=== PATIENT | male | born 1995 | race American Indian/Alaskan Native ===

== ENCOUNTER 2016-11-01 09:03 | Emergency (ER) | payer OTHER ==
[2016-11-01] MEDS ORDERED: NACL 0.9% 1000 ML 1,000 ML IV ONE (12:58)
[2016-11-01] MEDS ORDERED: MORPHINE IV ONE (12:58)
--- NOTE | 2016-11-01 12:59 | Emergency Department Report ---
<IONA CHURCHILL - Last Filed: 11/01/16 14:32> - General Chief Complaint: Puncture Wound Stated Complaint: RT LEG WOUND Time Seen by Provider: 11/01/16 12:13 - Related Data Previous Rx's Medication Instructions Recorded Last Taken Type Acetaminophen/Codeine [Tylenol #3] 1 tab PO Q6H PRN #6 tab 11/01/16 Unknown Rx Cephalexin [Keflex] 500 mg PO BID #14 capsule 11/01/16 Unknown Rx Ibuprofen [Motrin] 600 mg PO Q8H PRN #25 tablet 11/01/16 Unknown Rx Neomycn/Baci Zn/Pmyx Bs/Pramox 28 gm TP BID #1 oint...g. 11/01/16 Unknown Rx [Triple Antibioti-Pain Rlf Oint] Sulfamethoxazole/Trimethoprim 1 each PO BID #14 tablet 11/01/16 Unknown Rx [Bactrim DS TAB] Allergies Allergy/AdvReac Type Severity Reaction Status Date / Time No Known Allergies Allergy Unverified 11/01/16 09:15 ED Review of Systems ROS: Stated complaint: RT LEG WOUND Other details as noted in HPI ED Past Medical Hx - Medications Home Medications: Home Medications Medication Instructions Recorded Confirmed Last Taken Type Acetaminophen/Codeine [Tylenol #3] 1 tab PO Q6H PRN #6 tab 11/01/16 Unknown Rx Cephalexin [Keflex] 500 mg PO BID #14 capsule 11/01/16 Unknown Rx Ibuprofen [Motrin] 600 mg PO Q8H PRN #25 tablet 11/01/16 Unknown Rx Neomycn/Baci Zn/Pmyx Bs/Pramox 28 gm TP BID #1 oint...g. 11/01/16 Unknown Rx [Triple Antibioti-Pain Rlf Oint] Sulfamethoxazole/Trimethoprim 1 each PO BID #14 tablet 11/01/16 Unknown Rx [Bactrim DS TAB] ED Course Vital Signs 11/01/16 11/01/16 09:15 13:08 Temperature 98.4 F Pulse Rate 88 Respiratory 18 16 Rate Blood Pressure 117/80 O2 Sat by Pulse 100 Oximetry ED Medical Decision Making - Lab Data Result diagrams: 11/01/16 13:15 11/01/16 13:15 Critical care attestation.: If time is entered above; I have spent that time in minutes in the direct care of this critically ill patient, excluding procedure time. ED Disposition Clinical Impression: Puncture wound of right thigh Qualifiers: Encounter type: initial encounter Qualified Code(s): S71.131A - Puncture wound without foreign body, right thigh, initial encounter Disposition: DISCHARGED TO HOME OR SELFCARE Condition: Stable Instructions: Puncture Wound (ED), Suture Care (ED), Laceration (ED) Prescriptions: Acetaminophen/Codeine [Tylenol #3] 1 tab PO Q6H PRN #6 tab PRN Reason: Pain Cephalexin [Keflex] 500 mg PO BID #14 capsule Ibuprofen [Motrin] 600 mg PO Q8H PRN #25 tablet PRN Reason: Pain Neomycn/Baci Zn/Pmyx Bs/Pramox [Triple Antibioti-Pain Rlf Oint] 28 gm TP BID #1 oint...g. Sulfamethoxazole/Trimethoprim [Bactrim DS TAB] 1 each PO BID #14 tablet Referrals: PRIMARY CARE, [Primary Care Provider] - 3-5 Days Forms: Accompanied Note, Work/School Release Form(ED) <RUBENS FARRIS - Last Filed: 11/01/16 16:38> - General Source: patient Mode of arrival: Ambulatory Limitations: No Limitations - History of Present Illness Initial Comments: 21-year-old male past medical history none presents with complaint of puncture wound to right thigh. Patient states that approximately 11 PM last night he was walking on his porch and a piece of metal on porch railing punctured his right thigh as he walked by. Patient complaining of severe pain in his right thigh. States that it bled heavily last night and bleeding has slowed down. Denies sustaining any other injuries. States that he received a tetanus updated 3 years ago. Sorry but limping due to pain and right thigh. Visible moderate swelling and anterior right upper thigh. Patient denies any fever or chills, denies any paresthesias in lower extremity. Accompanied by his -: During the night Location: other (right thigh) Extremity Location: Right: Thigh (1 inch puncture wound with surrounding swelling right mid thigh anteriorly.) 1 - punture wound with surrounding Patient Tetanus UTD: Yes (3 years ago pt states he had tdap for another laceration) Context: accidental Associated Symptoms: none ED Review of Systems Constitutional: denies: chills, fever Eyes: denies: eye pain, eye discharge, vision change ENT: denies: ear pain, throat pain Respiratory: denies: cough, shortness of breath, wheezing Cardiovascular: denies: chest pain, palpitations Endocrine: no symptoms reported Gastrointestinal: denies: abdominal pain, nausea, diarrhea Genitourinary: denies: urgency, dysuria Musculoskeletal: denies: back pain, joint swelling, arthralgia Skin: denies: rash, lesions Neurological: denies: headache, weakness, paresthesias Psychiatric: denies: anxiety, depression Hematological/Lymphatic: denies: easy bleeding, easy bruising ED Past Medical Hx - Past Medical History Previous Medical History?: Yes Hx Hypertension: Yes - Surgical History Past Surgical History?: No - Social History Smoking Status: Never Smoker Substance Use Type: None ED Physical Exam - General Limitations: No Limitations General appearance: alert, in no apparent distress - Head Head exam: Present: atraumatic, normocephalic - Eye Eye exam: Present: normal appearance, PERRL, EOMI - ENT ENT exam: Present: mucous membranes moist - Neck Neck exam: Present: normal inspection - Respiratory Respiratory exam: Present: normal lung sounds bilaterally. Absent: respiratory distress - Cardiovascular Cardiovascular Exam: Present: regular rate, normal rhythm. Absent: systolic murmur, diastolic murmur, rubs, gallop - GI/Abdominal GI/Abdominal exam: Present: soft, normal bowel sounds - Rectal Rectal exam: Present: deferred - Extremities Exam Extremities exam: Present: normal inspection - Expanded Lower Extremity Exam Right Hip exam: Present: normal inspection, full ROM Upper Leg exam: Present: tenderness, swelling, laceration (1 inch horizontal laceration across the right anterior mid thigh no visible hemorrhage no visible bleeding, approxiamtely 10 cm surroundign wound) Knee exam: Present: normal inspection, full ROM Lower Leg exam: Present: normal inspection, full ROM Ankle exam: Present: normal inspection, full ROM Foot/Toe exam: Present: normal inspection, full ROM Neuro vascular tendon exam: Present: no vascular compromise Gait: Positive: antalgic 1 - wound Is here - Back Exam Back exam: Present: normal inspection - Neurological Exam Neurological exam: Present: alert, oriented X3, CN II-XII intact, normal gait - Psychiatric Psychiatric exam: Present: normal affect, normal mood - Skin Skin exam: Present: warm, dry, intact, normal color. Absent: rash - Laceration /Wound Repair Right Upper Anterior Thigh Wound Location: lower extremity Wound Length (cm): 2 Wound's Depth, Shape: superficial Wound Explored: clean Irrigated w/ Saline (ccs): 100 Betadine Prep?: Yes Anesthesia: 1% Lidocaine, Lidocaine w/ Epi Volume Anesthetic (ccs): 6 Wound Debrided: minimal Wound Repaired With: sutures Suture Size/Type: 4:0, nylon Number of Sutures: 1 Layer Closure?: No Sterile Dressing Applied?: Yes (triple abx and band-aid) ED Medical Decision Making - Lab Data Result diagrams: 11/01/16 13:15 11/01/16 13:15 - Medical Decision Making A/P: deep puncture wound right thigh 1-CT scan shows no arterial injury no severe muscular injury no foreign body 2-tdap is up-to-date 3-Bactrim and Keflex twice a day 7 days 4-Motrin PRN 5- 1 loose superficial 5-0 nylon suture placed to give some approximation of wound, edges left open as this is a puncture wound. Patient to return to the ED in 10 days for suture removal or to return sooner for any redness erythema severe pain pus drainage or foul odor from site or for development of any fever or chills or heavy bleeding. 6- Case d/w Dr. Parham 7- Pt ambulatory with normal vitals upon DC ED Disposition Is pt being admited?: No Does the pt Need Aspirin: No Time of Disposition: 16:35
[2016-11-01 13:38] LABS: Basophils % (Auto) 0.3 % (0.0-1.8); Eosinophils % (Auto) 0.4 % (0.0-4.3); Hematocrit 45.9 % (35.5-45.6); Hemoglobin 15.5 gm/dl (11.8-15.2); Mean Corpuscular HGB Conc 34 % (32-34); Mean Corpuscular Hemoglobin 30 pg (28-32); Mean Corpuscular Volume 90 fl (84-94); Platelet Count 183 K/mm3 (140-440); Red Blood Count 5.08 M/mm3 (3.65-5.03); Red Cell Distribution Width 13.4 % (13.2-15.2); White Blood Count 10.7 K/mm3 (4.5-11.0)
[2016-11-01 13:49] LABS: Anion Gap 18 mmol/L; Blood Urea Nitrogen 18 mg/dL (9-20); Calcium 8.9 mg/dL (8.4-10.2); Carbon Dioxide 23 mmol/L (22-30); Chloride 102.2 mmol/L (98-107); Creatine Kinase 322 units/L (55-170); Glucose 87 mg/dL (75-100); Potassium 4.2 mmol/L (3.6-5.0); Sodium 139 mmol/L (137-145)
[2016-11-01] MEDS ORDERED: NACL ONE (13:49)
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
[2016-11-01] MEDS ORDERED: XYLOCAINE 2%/EPI 1:100,000 INFILTRATI ONE (15:31)
[2016-11-01] MEDS ORDERED: XYLOCAINE 1%/ EPI 1:100,000 INFILTRATI ONE (15:31)
[2016-11-01] MEDS ORDERED: TRIPLE ANTIBIOTIC TP ONE ×2 (15:32→15:35)
[2016-11-01] MEDS ORDERED: BACTRIM DS PO ONE (15:34)
[2016-11-01] MEDS ORDERED: KEFLEX PO ONE (15:35)
[2016-11-01] MEDS ORDERED: XYLOCAINE 1%/ EPI 1:100,000 INFILTRATI NR (16:00)
[2016-11-01 16:49] VITALS: BP 124/78
== END 2016-11-01 16:48 | disposition home or self-care (01) ==
LOC: ED 09:03
DX: S71.131A Puncture wound without foreign body, right thigh, initial encounter (principal); I10 Essential (primary) hypertension; W45.8XXA Other foreign body or object entering through skin, initial encounter; Y93.01 Activity, walking, marching and hiking; Y99.8 Other external cause status; Y92.488 Other paved roadways as the place of occurrence of the external cause
CPT/HCPCS: 12001; 36415; 73706; 80048; 82550; 85025; 96361; 96374; 99284; J2270; J7030; Q9967; A6250

== ENCOUNTER 2018-08-06 15:52 | Emergency (ER) | payer OTHER ==
--- NOTE | 2018-08-06 21:06 | Emergency Department Report ---
ED General Adult HPI - General Chief complaint: Medical Clearance Stated complaint: JAW PAIN/LUMP ON NECK Time Seen by Provider: 08/06/18 20:13 Source: patient Mode of arrival: Ambulatory Limitations: No Limitations - History of Present Illness Initial comments: 22-year-old male to emergency Department complaining of having pain to his left jaw AND which has been present for the last 2-3 days. He states previously about a year ago he had episode of pain to his right jaw when he was at [facility] which required him to get a biopsy of this cervical lymph nodes and resulted in him receiving a shot for perceived syphilis, although not confirmed.. Pain has reemerge. She states she has not been sexually active since that time, but states he would like to get another set syphilis shot although he has no lesions that visit that he can account to 10 report of his body. No numbness or tingling, no fatigue, no mouth soles, no ulc erations, no rectal pain, no weight loss. - Related Data Previous Rx's Medication Instructions Recorded Last Taken Type Acetaminophen/Codeine [Tylenol #3] 1 tab PO Q6H PRN #6 tab 11/01/16 Unknown Rx Cephalexin [Keflex] 500 mg PO BID #14 capsule 11/01/16 Unknown Rx Ibuprofen [Motrin] 600 mg PO Q8H PRN #25 tablet 11/01/16 Unknown Rx Neomycn/Bacitrc/Polymyx/Pramox 28 gm TP BID #1 oint...g. 11/01/16 Unknown Rx [Triple Antibioti-Pain Rlf Oint] Sulfamethoxazole/Trimethoprim 1 each PO BID #14 tablet 11/01/16 Unknown Rx [Bactrim DS TAB] Amoxicillin/Potassium Clav 1 each PO BID #20 tablet 08/06/18 Unknown Rx [Augmentin 875-125 Tablet] Ketorolac [Toradol] 10 mg PO Q6H PRN #10 tablet 08/06/18 Unknown Rx Allergies Allergy/AdvReac Type Severity Reaction Status Date / Time No Known Allergies Allergy Unverified 11/01/16 09:15 ED Review of Systems ROS: Stated complaint: JAW PAIN/LUMP ON NECK Other details as noted in HPI Constitutional: denies: chills, fever Eyes: denies: eye pain, eye discharge, vision change ENT: denies: ear pain, throat pain Respiratory: denies: cough, shortness of breath, wheezing Cardiovascular: denies: chest pain, palpitations Endocrine: no symptoms reported Gastrointestinal: denies: abdominal pain, nausea, diarrhea Genitourinary: denies: urgency, dysuria Musculoskeletal: denies: back pain, joint swelling, arthralgia Skin: denies: rash, lesions Neurological: denies: headache, weakness, paresthesias Psychiatric: denies: anxiety, depression Hematological/Lymphatic: denies: easy bleeding, easy bruising ED Past Medical Hx - Past Medical History Previous Medical History?: Yes Hx Hypertension: Yes Additional medical history: syphilis - Surgical History Past Surgical History?: Yes Additional Surgical History: biopsy - Social History Smoking Status: Former Smoker Substance Use Type: Marijuana - Medications Home Medications: Home Medications Medication Instructions Recorded Confirmed Last Taken Type Acetaminophen/Codeine [Tylenol #3] 1 tab PO Q6H PRN #6 tab 11/01/16 Unknown Rx Cephalexin [Keflex] 500 mg PO BID #14 capsule 11/01/16 Unknown Rx Ibuprofen [Motrin] 600 mg PO Q8H PRN #25 tablet 11/01/16 Unknown Rx Neomycn/Bacitrc/Polymyx/Pramox 28 gm TP BID #1 oint...g. 11/01/16 Unknown Rx [Triple Antibioti-Pain Rlf Oint] Sulfamethoxazole/Trimethoprim 1 each PO BID #14 tablet 11/01/16 Unknown Rx [Bactrim DS TAB] Amoxicillin/Potassium Clav 1 each PO BID #20 tablet 08/06/18 Unknown Rx [Augmentin 875-125 Tablet] Ketorolac [Toradol] 10 mg PO Q6H PRN #10 tablet 08/06/18 Unknown Rx ED Physical Exam - General Limitations: No Limitations General appearance: alert, in no apparent distress - Head Head exam: Present: atraumatic, normocephalic - Eye Eye exam: Present: normal appearance - ENT ENT exam: Present: mucous membranes moist - Neck Neck exam: Present: normal inspection, full ROM, other (lymphadenopathy is appreciated, no sialitis, no swollen parotid glands, there is tenderness to the left temporomandibular joint. No lymph nodes to the preauricular or post oral Reglan region. No mastoid tenderness. Ears are clear). Absent: tenderness, meningismus, lymphadenopathy - Respiratory Respiratory exam: Present: normal lung sounds bilaterally, chest wall tenderness (past tenderness to the right rib cartilage area where there is a what feels to be a small cystic area. No abscess appreciated. No fluctuance. No lymphangitis or cellulitis.). Absent: respiratory distress, wheezes, rales, accessory muscle use - Cardiovascular Cardiovascular Exam: Present: regular rate, normal rhythm. Absent: systolic murmur, diastolic murmur, rubs, gallop - GI/Abdominal GI/Abdominal exam: Present: soft, normal bowel sounds - Rectal Rectal exam: Present: deferred - Extremities Exam Extremities exam: Present: normal inspection - Back Exam Back exam: Present: normal inspection - Neurological Exam Neurological exam: Present: alert, oriented X3, CN II-XII intact - Psychiatric Psychiatric exam: Present: normal affect, normal mood - Skin Skin exam: Present: warm, dry, intact, normal color. Absent: rash ED Course Vital Signs 08/06/18 16:07 Temperature 98.2 F Pulse Rate 60 Respiratory 18 Rate Blood Pressure 126/78 O2 Sat by Pulse 99 Oximetry Critical care attestation.: If time is entered above; I have spent that time in minutes in the direct care of this critically ill patient, excluding procedure time. ED Disposition Clinical Impression: Jaw pain Disposition: DC-01 TO HOME OR SELFCARE Is pt being admited?: No Does the pt Need Aspirin: No Condition: Stable Prescriptions: Amoxicillin/Potassium Clav [Augmentin 875-125 Tablet] 1 each PO BID #20 tablet Ketorolac [Toradol] 10 mg PO Q6H PRN #10 tablet PRN Reason: Pain Referrals: PRIMARY CARE, [Primary Care Provider] - 3-5 Days [facility] [Provider Group] - 3-5 Days (Please follow up with [facility] for further evaluation of your lymphadenopathy history and a syphilis history. Currently asymptomatic in that regard completer antibodies and there entirety.) Forms: Accompanied Note, Work/School Release Form(ED)
== END 2018-08-06 21:35 | disposition home or self-care (01) ==
LOC: ED 15:52
CPT/HCPCS: 99281

== ENCOUNTER 2018-12-08 00:17 | Emergency (ER) | payer OTHER ==
[2018-12-08 00:36] VITALS: BP 119/69
--- NOTE | 2018-12-08 01:01 | XRay Report ---
PROCEDURE: XR CHEST 1V AP TECHNIQUE: A single view the chest was obtained. HISTORY: Chest Pain COMPARISONS: None FINDINGS: The lungs are clear. The heart size is normal. Pleural fluid is not seen. The bones and soft tissues are well-maintained. IMPRESSION: No acute cardiopulmonary process.. This document is electronically signed by Buddy Brown MD., Dec 08 2018 12:58:52 AM ET
== END 2018-12-08 04:00 | disposition left against medical advice (07) ==
LOC: ED 00:17
DX: R07.89 Other chest pain (principal); Z53.21 Procedure and treatment not carried out due to patient leaving prior to being seen by health care provider
CPT/HCPCS: 71045; 93005; 93010